=== PATIENT | male | born 1980 | race African-American/Black ===

== ENCOUNTER 2018-12-06 00:37 | Emergency (ER) | payer OTHER ==
[2018-12-06] MEDS ORDERED: traMADol HCl 50 MG TAB ONE (01:04)
[2018-12-06] MEDS ORDERED: Ibuprofen 800 MG TAB ONE (01:04)
[2018-12-06] MEDS ORDERED: AMOXicillin 250 MG CAP ONE (01:32)
== END 2018-12-06 01:33 | disposition home or self-care (01) ==
LOC: BURERS 00:37
DX: J20.9 Acute bronchitis, unspecified (principal)
CPT/HCPCS: 87804; 99283